=== PATIENT | male | born 2000 | race Caucasian/White ===

== ENCOUNTER 2024-05-10 11:25 | Emergency (ER) | payer OTHER ==
[~2024-05-10] VITALS: Ht 185.4 cm; Wt 68.2 kg
[~2024-05-10 11:25] MED LIST: NO HOME MEDS; ONDA-103 PO; PANT20TA18 PO
[2024-05-10] MEDS: insulin regular, human 10 units/0.1 ml syringe IV ONE (12:06)
[2024-05-10] MEDS: normal saline 1000ML IV soln IVB ONE (12:07)
[2024-05-10 12:22] LABS: BILIRUBIN,URINE NEGATIVE (Neg); CLARITY,URINE CLEAR (Clear); COLOR,URINE YELLOW (Yellow); GLUCOSE, URINE 500 mg/dl (Neg); KETONES,URINE >=80 mg/dl (Neg); LEUKOCYTE ESTERASE ,URINE NEGATIVE (Neg); NITRITES, URINE NEGATIVE (Neg); OCCULT BLOOD,URINE NEGATIVE (Neg); PROTEIN,URINE NEGATIVE (Neg); UROBILINOGEN,URINE 0.2 E.U/dL (0.2-1.0)
[2024-05-10 12:22] LABS: BASOPHILS # (AUTO) 0.1 X10'3 (0-0.2); BASOPHILS % (AUTO) 0.8 % (0-1); EOSINOPHILS % (AUTO) 0.5 % (0-6); HEMATOCRIT 38.2 % (42.0-52.0); HEMOGLOBIN 12.7 g/dl (14.0-17.9); LYMPHOCYTES % (AUTO) 14.4 % (21-51); MEAN CORPUSCULAR HGB CONC 33.3 g/dL (33.0-36.5); MEAN CORPUSCULAR VOLUME 87.1 FL (78-98); MONOCYTES # (AUTO) 0.3 X10'3 (0-0.9); MONOCYTES % (AUTO) 3.6 % (2-12); NEUTROPHILS # (AUTO) 5.6 X10'3 (1.8-7.7); NEUTROPHILS % (AUTO) 80.7 % (42-75); PLATELET COUNT 177 X10'3 (140-440); RED BLOOD COUNT 4.39 X10'6 (4.70-6.10); WHITE BLOOD COUNT 6.9 X10'3 (4.5-11.0)
[2024-05-10 12:23] LABS: UA COLLECTION TYPE VOIDED
[2024-05-10 12:35] LABS: ALANINE AMINOTRANSFERASE 11 U/L (12-78); ALBUMIN 3.9 G/DL (3.4-5.0); ALBUMIN/GLOBULIN RATIO 1.2 (1.1-1.5); ALKALINE PHOSPHATASE 68 IU/L (46-116); ANION GAP 20 (8-16); ASPARTATE AMINO TRANSFERASE 18 U/L (10-37); BILIRUBIN,TOTAL 1.4 MG/DL (0.1-1.0); BLOOD UREA NITROGEN 16 MG/DL (7-18); BUN/CREATININE RATIO 14.3 (10.0-20.0); CALCIUM 8.1 MG/DL (8.5-10.1); CHLORIDE 102 MMOL/L (99-107); CREATININE 1.12 MG/DL (0.60-1.10); GLUCOSE 373 MG/DL (70-104); MAGNESIUM 1.6 MG/DL (1.5-2.4); PHOSPHORUS 2.2 MG/DL (2.3-4.5); POTASSIUM 4.1 MMOL/L (3.5-5.1); SODIUM 137 MMOL/L (135-145); TOTAL CARBON DIOXIDE 15.3 MMOL/L (24-32); TOTAL PROTEIN 7.1 G/DL (6.4-8.2); eCRCL 98 ML/MIN; eGFR 81 ML/MIN
[2024-05-10] MEDS: ondansetron/PF 4mg/2ml inj IV ONE (12:46)
[2024-05-10] MEDS: ringers solution, lactated 1000ml IV soln IV ONE ×2 (12:47→13:55)
[2024-05-10] MEDS: acetaminophen 1,000mg/100ml IV 100 ML IV ONE (13:59)
[2024-05-10] MEDS: ketorolac trometh 15mg/ml vial 15 MG/ML ML IV ONE (13:59)
[2024-05-10] MEDS: potassium Cl 20 mEq SR tablet PO STA (14:11)
[2024-05-10 14:27] VITALS: BP 98/46; PULSE 110; O2SAT 100
[2024-05-10 14:28] VITALS: RESP 14
[2024-05-10] MEDS ORDERED: ONDA-243 PO (14:33)
[2024-05-10 14:44] VITALS: TEMP 97.1
[2024-05-11] MEDS ORDERED: INSU100V49 SQ (17:29)
[2024-05-11] MEDS ORDERED: ONDA-243 PO (17:29)
== END 2024-05-10 14:45 | disposition home or self-care (01) ==
LOC: ER 11:25
DX: R11.2 Nausea with vomiting, unspecified (principal); E11.9 Type 2 diabetes mellitus without complications; Z88.0 Allergy status to penicillin; Z88.1 Allergy status to other antibiotic agents; Z79.899 Other long term (current) drug therapy; Z79.4 Long term (current) use of insulin
CPT/HCPCS: 36415; 80053; 81003; 82948; 83735; 84100; 84145; 85025; 96361; 96365; 96375; 99285; J0131; J1815; J1885; J2405; J7030; J7120

== ENCOUNTER 2024-05-10 16:32 | Inpatient (IN) | payer OTHER ==
[~2024-05-10] VITALS: Ht 182.9 cm; Wt 65.9 kg
[~2024-05-10 16:32] MED LIST changes: +ONDA-243 PO
[2024-05-10] MEDS: normal saline 1000ML IV soln IVB ONE (16:55)
[2024-05-10] MEDS: LORazepam 2 mg/ml vial IV ONE (16:56)
[2024-05-10] MEDS: metoclopramide 5 mg/ml inj IV ONE (16:57)
[2024-05-10] MEDS: diphenhydrAMINE 50 mg/ml inj IV ONE (16:58)
[2024-05-10 17:11] LABS: ALBUMIN 4.1 G/DL (3.4-5.0); ANION GAP 21 (8-16); BLOOD UREA NITROGEN 16 MG/DL (7-18); BUN/CREATININE RATIO 12.1 (10.0-20.0); CALCIUM 8.6 MG/DL (8.5-10.1); CHLORIDE 99 MMOL/L (99-107); CREATININE 1.32 MG/DL (0.60-1.10); GLUCOSE 320 MG/DL (70-104); POTASSIUM 4.8 MMOL/L (3.5-5.1); SODIUM 134 MMOL/L (135-145); eCRCL 80 ML/MIN; eGFR 67 ML/MIN
[2024-05-10 17:13] LABS: TOTAL CARBON DIOXIDE 14.2 MMOL/L (24-32)
[2024-05-10] MEDS ORDERED: potassium Cl 40MEQ/1/2NS 520ml 520 ML IV PRN ×2 (17:15→18:30)
[2024-05-10] MEDS ORDERED: Neutra Phos packet PO PRN (17:15)
[2024-05-10] MEDS ORDERED: dextrose 50%-water 50ml dispensing syringe IV PRN (17:15)
[2024-05-10] MEDS ORDERED: potassium Cl 20 mEq SR tablet PO PRN ×4 (17:15→18:30)
[2024-05-10] MEDS ORDERED: sodium phosphate inj. 15 MMOL in dextrose 5%-water 250 ML IV PRN (17:15)
[2024-05-10] MEDS ORDERED: sodium phosphate inj. 30 MMOL in dextrose 5%-water 250 ML IV PRN (17:15)
[2024-05-10] MEDS: insulin regular, human 10 units/0.1 ml syringe IV ONE (17:18)
[2024-05-10] MEDS: Insulin Reg/NS 100units/100mL 100 ML IV SCH (17:29)
[2024-05-10] MEDS: normal saline 1000ml 1,000 ML IV SCH (17:43)
[2024-05-10 17:55] LABS: ABG BASE EXCESS -13.6 mmol/L (-2.0-3.0); ABG HCO3 11.4 mmol/L (21.0-28.0); ABG OXYGEN SATURATION 96.7 % (94.0-98.0); ABG PCO2 (T) 24.9 mmHg (35.0-48.0); ABG PH (T) 7.279 (7.350-7.450); ABG PO2 (T) 98.3 mmHg (83.0-108.0); ALLEN'S TEST POSITIVE; FCOHb 0.3 % (0.5-1.5); FHHb 3.3 % (0.0-5.0); FLOW 0 L/min; FMetHb 0.3 % (0.0-1.5); FO2Hb 96.1 % (94.0-98.0); MODE RA; PATIENT TEMPERATURE 36.9; TOTAL HEMOGLOBIN 12.7 G/dl (13.5-17.5)
[2024-05-10] MEDS: ringers solution, lactated 1000ml IV soln IV ONE (18:11)
[2024-05-10] MEDS ORDERED: magnesium sulf-water 4G/100mL 100 ML IV PRN (18:30)
[2024-05-10] MEDS ORDERED: acetaminophen 325mg tablet PO PRN (18:30)
[2024-05-10] MEDS ORDERED: mag hydrox/Alum hydrox/simeth 30ml oral suspension PO PRN (18:30)
[2024-05-10] MEDS ORDERED: magnesium sulf-water 2g/50mL 50 ML IV PRN (18:30)
[2024-05-10] MEDS ORDERED: glucagon, human recombinant 1mg kit SUBCUT PRN (18:30)
[2024-05-10] MEDS: potassium CL 20mEq in D5-1/2NS 1,000 ML IV PRN (18:31)
[2024-05-10 19:20] LABS: ALANINE AMINOTRANSFERASE 10 U/L (12-78); ALBUMIN 2.6 G/DL (3.4-5.0); ALBUMIN/GLOBULIN RATIO 1.2 (1.1-1.5); ALKALINE PHOSPHATASE 41 IU/L (46-116); ANION GAP 12 (8-16); ASPARTATE AMINO TRANSFERASE 18 U/L (10-37); BILIRUBIN,TOTAL 0.8 MG/DL (0.1-1.0); BLOOD UREA NITROGEN 14 MG/DL (7-18); BUN/CREATININE RATIO 15.6 (10.0-20.0); CHLORIDE 105 MMOL/L (99-107); GLUCOSE 209 MG/DL (70-104); POTASSIUM 4.1 MMOL/L (3.5-5.1); SODIUM 133 MMOL/L (135-145); TOTAL CARBON DIOXIDE 15.9 MMOL/L (24-32); TOTAL PROTEIN 4.8 G/DL (6.4-8.2); eCRCL 118 ML/MIN; eGFR > 90 ML/MIN
[2024-05-10 19:27] LABS: HEMOGLOBIN A1C 9.6 % (4.5-6.2)
[2024-05-10] MEDS: normal saline 1000ml 1,000 ML IV STA (19:46)
[2024-05-10] MEDS: K and/or MAG REPLACEMENT MC SCH ×2 (20:00)
[2024-05-10] MEDS: docusate sod 100mg capsule PO SCH (20:00)
[2024-05-10] MEDS: INSULIN LISPRO 100 UNIT/ML INSULN.PEN MULTI-DOSE SQ SCH (20:43)
[2024-05-10 22:18] LABS: ALBUMIN 2.8 G/DL (3.4-5.0); ANION GAP 6 (8-16); BLOOD UREA NITROGEN 12 MG/DL (7-18); CALCIUM 7.4 MG/DL (8.5-10.1); CHLORIDE 110 MMOL/L (99-107); CREATININE 0.92 MG/DL (0.60-1.10); GLUCOSE 126 MG/DL (70-104); PHOSPHORUS 1.8 MG/DL (2.3-4.5); POTASSIUM 4.2 MMOL/L (3.5-5.1); SODIUM 137 MMOL/L (135-145); TOTAL CARBON DIOXIDE 21.4 MMOL/L (24-32); eCRCL 115 ML/MIN; eGFR > 90 ML/MIN
[2024-05-10 23:35] LABS: ANION GAP 5 (8-16); BLOOD UREA NITROGEN 13 MG/DL (7-18); BUN/CREATININE RATIO 14.9 (10.0-20.0); CALCIUM 7.8 MG/DL (8.5-10.1); CHLORIDE 110 MMOL/L (99-107); CREATININE 0.87 MG/DL (0.60-1.10); GLUCOSE 88 MG/DL (70-104); SODIUM 138 MMOL/L (135-145); TOTAL CARBON DIOXIDE 22.7 MMOL/L (24-32); eCRCL 122 ML/MIN; eGFR > 90 ML/MIN
[2024-05-11] MEDS: insulin glargine (Lantus) pen - multi-dose SQ SCH (00:19)
[2024-05-11] MEDS: ondansetron/PF 4mg/2ml inj IV PRN (00:21)
[2024-05-11 03:58] LABS: BASOPHILS % (AUTO) 0.4 % (0-1); EOSINOPHILS # (AUTO) 0.1 X10'3 (0-0.9); EOSINOPHILS % (AUTO) 0.8 % (0-6); HEMATOCRIT 36.5 % (42.0-52.0); HEMOGLOBIN 12.4 g/dl (14.0-17.9); LYMPHOCYTES # (AUTO) 2.2 X10'3 (1.1-4.8); MEAN CORPUSCULAR HEMOGLOBIN 29.5 PG (27.0-31.0); MEAN CORPUSCULAR HGB CONC 33.9 g/dL (33.0-36.5); MEAN CORPUSCULAR VOLUME 87.1 FL (78-98); MEAN PLATELET VOLUME 10.4 FL (7.4-10.4); MONOCYTES # (AUTO) 0.9 X10'3 (0-0.9); NEUTROPHILS # (AUTO) 8.4 X10'3 (1.8-7.7); NEUTROPHILS % (AUTO) 71.8 % (42-75); PLATELET COUNT 151 X10'3 (140-440); RED BLOOD COUNT 4.19 X10'6 (4.70-6.10); RED CELL DISTRIBUTION WIDTH 12.1 % (11.5-14.5); WHITE BLOOD COUNT 11.6 X10'3 (4.5-11.0)
[2024-05-11 04:15] LABS: ALANINE AMINOTRANSFERASE 10 U/L (12-78); ALBUMIN 2.9 G/DL (3.4-5.0); ALBUMIN/GLOBULIN RATIO 1.1 (1.1-1.5); ALKALINE PHOSPHATASE 48 IU/L (46-116); ANION GAP 10 (8-16); ASPARTATE AMINO TRANSFERASE 19 U/L (10-37); BILIRUBIN,TOTAL 1.1 MG/DL (0.1-1.0); BLOOD UREA NITROGEN 12 MG/DL (7-18); BUN/CREATININE RATIO 12.6 (10.0-20.0); CALCIUM 7.8 MG/DL (8.5-10.1); CHLORIDE 104 MMOL/L (99-107); CREATININE 0.95 MG/DL (0.60-1.10); GLUCOSE 198 MG/DL (70-104); MAGNESIUM 1.7 MG/DL (1.5-2.4); PHOSPHORUS 3.5 MG/DL (2.3-4.5); POTASSIUM 4.9 MMOL/L (3.5-5.1); SODIUM 133 MMOL/L (135-145); TOTAL CARBON DIOXIDE 19.5 MMOL/L (24-32); TOTAL PROTEIN 5.5 G/DL (6.4-8.2); eCRCL 112 ML/MIN; eGFR > 90 ML/MIN
[2024-05-11] MEDS: INSULIN LISPRO 100 UNIT/ML INSULN.PEN MULTI-DOSE SQ SCH (10:05)
[2024-05-11 11:00] VITALS: RESP 16; O2SAT 97
[2024-05-11 11:10] VITALS: BP 124/62; PULSE 97; TEMP 97.9; O2SAT 97
[2024-05-11] MEDS: insulin Lispro (HumaLOG) vial - multi-dose SQ ONE (11:39)
[2024-05-11] MEDS: INSULIN LISPRO 100 UNIT/ML INSULN.PEN MULTI-DOSE SQ ONE ×2 (11:59→13:15)
[2024-05-11 15:00] VITALS: BP 114/77; PULSE 98; TEMP 99; O2SAT 98
[2024-05-11] MEDS ORDERED: INSU100V49 SQ (17:29)
[2024-05-11] MEDS ORDERED: ONDA-243 PO (17:29)
[2024-05-11] MEDS ORDERED: insulin glargine (Lantus) pen - multi-dose SQ SCH (21:00)
== END 2024-05-11 19:23 | disposition home or self-care (01) | DRG 637 ==
LOC: ER 16:32 → ED HOLD 18:37 → PCU 3S 05-11 10:55
PROVIDERS: ADMIT Family Medicine; ATTEND Family Medicine
DX: E10.10 Type 1 diabetes mellitus with ketoacidosis without coma (principal); N17.0 Acute kidney failure with tubular necrosis; R11.15 Cyclical vomiting syndrome unrelated to migraine; Z88.0 Allergy status to penicillin; Z88.1 Allergy status to other antibiotic agents; Z83.3 Family history of diabetes mellitus
CPT/HCPCS: 36415; 36600; 71045; 80048; 80053; 82803; 82948; 83036; 83605; 83735; 84100; 85018; 85025; 96365; 96367; 96375; 99285; G0378; J1200; J1815; J2060; J2405; J2765; J3480; J7030; J7120

== ENCOUNTER 2025-06-29 12:41 | Inpatient (IN) | payer OTHER ==
[~2025-06-29] VITALS: Ht 182.9 cm; Wt 72.3 kg
[~2025-06-29 12:41] MED LIST changes: +INSU100V49 SQ; -NO HOME MEDS; -ONDA-103 PO; -PANT20TA18 PO
--- NOTE | 2025-06-29 13:26 | Physician Documentation ---
History of Present Illness General Chief Complaint: Vomiting Stated Complaint: DKA Time Seen by MD: 13:26 Primary Medical Doctor: BRITTNEY Grijalva History of Present Illness Initial Comments 25 year old male with history of diabetes presents to the emergency department for complaints of vomiting that began last night. He states that he had been vomiting beginning at midnight and vomited a total of four times. He states that he urinated and tried to replenish his fluids himself to no avail. Medication Reconciliation Allergies: Coded Allergies: Penicillins (Verified Allergy, Unknown, 05/10/24) amoxicillin (Verified Allergy, Unknown, 05/10/24) Scheduled Insulin Lispro (Insulin Lispro), 1 UNIT SQ 5X/DAY Discontinued Medications ONDANSETRON ODT 4mg tablet (Ondansetron Odt), 1 TAB PO Q6H PRN for nausea/vomiting Discontinued Reason: ADR (Adverse Drug Rxn) Past Medical History Past Medical History: Diabetes Past Surgical History: no surgical history Smoking: Non-Smoker Alcohol Use: None Drug Use: none Lives In: Home Review of Systems All Other Systems at this time: Reviewed and Negative ROS Patient was asked, but denied any other symptoms. All other systems are negative other than those mentioned above. Physical Exam Physical Exam Vital Signs: RN Vital Signs have been reviewed: Yes, Temperature: 98.5, Source: Temporal, Heart Rate: 77, Respiratory Rate: 18, BP: 147/73, Pulse Oximetry: 99, Weight: 72.300 Oxygen Flow Rate: 0 Pulse Oximetry Reflects: adequate oxygenation Physical Exam VITALS: Reviewed and as above. GENERAL: Pale. Ill appearing. Alert, no apparent distress. HEENT: Normocephalic, atraumatic. PERRL, EOMI. Dry mucosa, no erythema. RESPIRATORY: Lungs clear, normal breath sounds, no respiratory distress. CHEST: No accessory muscle use, no retractions. CV: Tachycardic. No edema, no murmur, No: JVD GI: Abdominal tenderness., bowel sounds present. No rebound, guarding, or rigidity. BACK: No CVA tenderness, no swelling. MUSCULOSKELETAL: No deformities, no edema SKIN: Warm and dry, no rash. NEURO: Oriented x4. No motor or sensory deficit. PSYCH: Normal mood and affect, no agitation. Progress Results/Orders Results/Orders Orders - OHLFSАНДРЕЙ MD Chest,Single View (06/29/25 13:53) Page Hospitalist (06/29/25 14:38) Completed Orders - OHLFS,АНДРЕЙ Trejo MD Urinalysis, Cult If Indicated (06/29/25 12:59) Cbc/Diff (06/29/25 12:59) BMP (06/29/25 12:59) Lipase (06/29/25 12:59) CMP (06/29/25 12:59) K (06/29/25 17:30) Ringers Solution, Lacted (Lactated Ringe (06/29/25 13:30) Ringers Solution, Lacted (Lactated Ringe (06/29/25 13:30) Dextrose 5%-1/2 Normal Saline (Dextrose (06/29/25 13:30) Insulin Reg/Ns 100units/100ml (Myxredlin (06/29/25 13:30) Dextrose 50%-Water (Dextrose 50%-Water S (06/29/25 13:30) Potassium Cl 40meq/1/2ns 520ml ([place] (06/29/25 13:30) Potassium Cl 40meq/270ml Bag (Potassium (06/29/25 13:30) Magnesium Sulf-Water 2g/50ml (Magnesium (06/29/25 13:30) Sodium Phos 15mmol/D5 255ml (Sodium Phos (06/29/25 13:30) Procalcitonin (06/29/25 13:29) Chest,Single View (06/29/25 13:53) MG (06/29/25 13:06) PHOS (06/29/25 13:06) Electrocardiogram (06/29/25 ) Lacticsepsis (06/29/25 13:49) Normal Saline 1000ml (0.9% Sodium Chlori (06/29/25 13:55) Normal Saline 1000ml (0.9% Sodium Chlori (06/29/25 13:55) Metoclopramide Inj (Reglan Inj) (06/29/25 14:15) Diphenhydramine Inj (Benadryl Inj.) (06/29/25 14:15) Lactic,2hr (06/29/25 15:25) Hgb A1c (06/29/25 13:06) Vital Signs 06/29/25 06/29/25 06/29/25 12:53 15:13 15:14 Temp 98.5 Pulse 77 10 Resp 18 21 20 B/P (MAP) 147/73 118/60 (79) Pulse Ox 99 100 O2 Flow Rate 0 Laboratory Tests Test 06/29/25 12:57 06/29/25 13:06 06/29/25 13:24 06/29/25 13:39 Glucometer 510 *H > 600 *H White Blood Count 11.1 H Red Blood Count 5.58 Hemoglobin 15.9 Hematocrit 47.0 Mean Corpuscular Volume 84.2 Mean Corpuscular Hemoglobin 28.4 Mean Corpuscular Hemoglobin Concent 33.8 Red Cell Distribution Width 12.0 Platelet Count 289 Mean Platelet Volume 10.0 Neutrophils (%) (Auto) 88.0 H Lymphocytes (%) (Auto) 8.8 L Monocytes (%) (Auto) 2.8 Eosinophils (%) (Auto) 0.1 Basophils (%) (Auto) 0.3 Neutrophils # (Auto) 9.8 H Lymphocytes # (Auto) 1.0 L Monocytes # (Auto) 0.3 Eosinophils # (Auto) 0.0 Basophils # (Auto) 0.0 CBC Comment Sodium Level 136 Potassium Level 5.4 H 5.3 H Chloride Level 96 L Carbon Dioxide Level 10.8 *L Anion Gap 29 H Blood Urea Nitrogen 20 H Creatinine 1.30 H Estimated GFR/1.73 m2 67 BUN/Creatinine Ratio 15.4 Glucose Level 584 *H Hemoglobin A1c > 12.0 H Lactic Acid Level 4.2 *H Calcium Level 9.6 Phosphorus Level 5.4 H Magnesium Level 2.3 Total Bilirubin 1.7 H Aspartate Amino Transf (AST/SGOT) 21 Alanine Aminotransferase (ALT/SGPT) 12 Alkaline Phosphatase 91 Total Protein 8.6 H Albumin 4.6 Globulin 4.0 Albumin/Globulin Ratio 1.2 Lipase 15 L Chemistry Comments Procalcitonin 0.07 Test 06/29/25 14:23 06/29/25 15:10 Urine Specimen Description Cln catch midstream Urine Color Yellow Urine Clarity Clear Urine pH 5.5 Urine Specific [place] 1.025 Urine Protein Negative Urine Glucose (UA) 500 H Urine Ketones >=80 Urine Occult Blood Negative Urine Nitrite Negative Urine Bilirubin Negative Urine Urobilinogen 0.2 Urine Leukocyte Esterase Negative Urine Culture Indicated Not ind Volume Urine Centrifuged 10 ml Urine Comment Urine Opiates Screen Negative Urine Methadone Screen Negative Urine Fentanyl Screen Negative Urine Barbiturates Screen Negative Urine Phencyclidine Screen Negative Urine Amphetamines Screen Negative Urine Benzodiazepines Screen Negative Urine Cocaine Screen Negative Urine Cannabinoids Screen Positive Drug Screen Comment Glucometer 489 *H EKG/XRAY/CT/US/VASC/MRI EKG : Additional Comment 1344: [facility] interpreted EKG to show sinus rhythm at a rate of 98 with normal axis, nonspecific ST changes. Borderline EKG. Chest X-Ray : Additional Comments CHEST RADIOGRAPH INDICATION: dka TECHNIQUE: Single frontal view of the chest was obtained COMPARISON: DI CHEST,SINGLE VIEW on DOS: 05/10/24 FINDINGS: Lines and Tubes: None Lungs: Clear Pleura: No effusion. No pneumothorax. Cardiomediastinal contours: Unremarkable Bones: Unremarkable IMPRESSION: No acute disease. Electronically Signed by:JONAS ARDON MD Date & Time: 06/29/25 1409 Reviewed by [facility] Departure Referrals: NO PRIMARY CARE PROVIDER (PCP) Signature Scribe Signature: Scribed by Fabian Morrison KYIvyАНДРЕЙ MD Jun 29, 2025 13:26
[2025-06-29] MEDS ORDERED: potassium Cl 40MEQ/270ML bag 270 ML IV PRN (13:30)
[2025-06-29] MEDS ORDERED: dextrose 50%-water 50ml dispensing syringe IV PRN (13:30)
[2025-06-29] MEDS ORDERED: magnesium sulf-water 2g/50mL 50 ML IV PRN ×2 (13:30→16:15)
[2025-06-29] MEDS: ringers solution, lacted 1,000 ML IV SCH ×2 (13:30)
[2025-06-29] MEDS ORDERED: sodium phos 15mmol/D5 255mL 255 ML IV PRN (13:30)
[2025-06-29 13:37] LABS: MEAN PLATELET VOLUME 10.0 FL (7.4-10.4); RED CELL DISTRIBUTION WIDTH 12.0 % (11.5-14.5)
[2025-06-29 13:43] LABS: CREATININE 1.30 MG/DL (0.60-1.10); eCRCL 88 ML/MIN; eGFR 67 ML/MIN
--- NOTE | 2025-06-29 13:45 | ELECTROCARDIOGRAPH REPORT ---
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 Eric Lee Measurements Intervals [place] Rate: 98 P: 80 MA: 111 QRS: 64 QRSD: 92 T: 73 QT: 369 QTc: 472 Interpretive Statements Sinus rhythm Borderline short MA interval RSR' in V1 or V2, probably normal variant Borderline prolonged QT interval Electronically Signed On 07-01-2025 21:14:[address] Eric Lee Please click the below link to view image of tracing.
[2025-06-29 13:49] LABS: TOTAL CARBON DIOXIDE 10.8 MMOL/L (24-32)
[2025-06-29] MEDS: normal saline 1000ml 1,000 ML IV ONE ×2 (14:01→14:17)
--- NOTE | 2025-06-29 14:11 | RADIOLOGY REPORT ---
CHEST RADIOGRAPH INDICATION: dka TECHNIQUE: Single frontal view of the chest was obtained COMPARISON: DI CHEST,SINGLE VIEW on DOS: 05/10/24 FINDINGS: Lines and Tubes: None Lungs: Clear Pleura: No effusion. No pneumothorax. Cardiomediastinal contours: Unremarkable Bones: Unremarkable IMPRESSION: No acute disease.
[2025-06-29 14:12] LABS: PHOSPHORUS 5.4 MG/DL (2.3-4.5)
[2025-06-29] MEDS: Insulin Reg/NS 100units/100mL 100 ML IV SCH (14:27)
[2025-06-29] MEDS: metoclopramide 5 mg/ml inj IV ONE (14:27)
[2025-06-29 14:34] LABS: LEUKOCYTE ESTERASE ,URINE NEGATIVE (Neg); NITRITES, URINE NEGATIVE (Neg); OCCULT BLOOD,URINE NEGATIVE (Neg)
[2025-06-29 14:35] LABS: UA COLLECTION TYPE CLN CATCH MIDSTREAM
[2025-06-29] MEDS ORDERED: magnesium hydroxide 30ml (MOM) UD suspension PO PRN (16:15)
[2025-06-29] MEDS ORDERED: magnesium sulf-water 4G/100mL 100 ML IV PRN (16:15)
[2025-06-29] MEDS ORDERED: mag hydrox/Alum hydrox/simeth 30ml oral suspension PO PRN (16:15)
[2025-06-29] MEDS ORDERED: potassium Cl 20 mEq SR tablet PO PRN ×2 (16:15)
[2025-06-29] MEDS ORDERED: magnesium Cl slow-release 64mg tablet PO PRN (16:15)
[2025-06-29] MEDS ORDERED: potassium Cl 40MEQ/1/2NS 520ml 520 ML IV PRN (16:15)
[2025-06-29 17:00] VITALS: BP 107/51; PULSE 14; RESP 14; TEMP 98.3; O2SAT 99
--- NOTE | 2025-06-29 17:24 | HISTORY AND PHYSICAL-Residence ---
History & Physical Providers to CC Resident Creating Document: SUNITA FLOWERS RES ~ History of Present Illness Primary Medical Doctor: BRITTNEY Tsang Reason for Admit\Complaint: high blood glucose History of Present Illness This is a 25-year-old male past medical history of type 1 diabetes mellitus presented in ER chief complaint of vomiting and abdominal pain. Patient reports since last night he experienced excessive urination stating was urinating wholenight and was drinking excess amounts of water due to feeling of de- hydration. He took 12 units of insulin however he was unable to check his glucose because he could not find his glucometer. In the morning he went to work he was feeling lethargic, abdominal pain.Then at home abdominal pain worseneded,was 8-10/ in intensity, radiating to left side of chest, shoulders and back. Associated with vomiting, he had four episodes of vomiting which did not contain any blood. Patient reports he taking insulin fast acting with insulin pump 30 units in 24 hours and supplementental 10-20 units . Allergies: Coded Allergies: Penicillins (Verified Allergy, Unknown, 05/10/24) amoxicillin (Verified Allergy, Unknown, 05/10/24) Home Medications Home Medications Active Insulin Lispro 100 Unit/Ml Vial 1 Unit SQ 5X/DAY 1 Days Insulin pump Past Medical History Past Medical History Type 1 diabetes mellitus Past Surgical History Surgical History Comment Denies any past surgical history. Family History Family History: (DM Type 2) Diabetes mellitus type 2 Paternal grandfather FH: heart disease Paternal grandmother Paternal grandfather Past Social History Social History Comment Denies smoking Drinks alcohol occasionally Smokes weed few times in a month Denies other illicit drug use history Lives in home with his family PCP is Brittney Tsang ROS ROS All reviewed and negative except for pertinent positive findings mentioned in HPI. Exam Vitals: Vital Signs Date Time Temp Pulse Resp B/P (MAP) Pulse Ox O2 Delivery O2 Flow Rate FiO2 06/29/25 15:14 20 06/29/25 15:13 10 100 06/29/25 12:53 98.5 0 General: General: awake, alert oriented to place, time, and person HEENT: No pallor present, no icterus, dry mucous membrane. Neck: No masses and tenderness Resp: Unlabored. Lungs clear to auscultation bilaterally. Chest: Normal expansion. Cardiovascular: Regular Rate and rhythm, normal S1 and S2 without murmur, rub or gallop Abdomen: Soft and mildly tender in epigastrium, no organomegaly, no guarding and rigidity, bowel sounds present Neuro: No focal weakness in the upper and lower limb muscles, power of the muscles 5/5 bilateral upper and lower extremities, normal reflexes bilaterally. Cranial nerves intact Extremities: No cyanosis,clubbing or edema Skin: Warm and Dry. Psych: Normal affect Diagnostic Data Last Recorded Lab Results: 06/29/25 1306 06/29/25 1339 Advance Care Planning Advanced Care plannin - 30 Minutes (I spent 17 minutes in discussing various resustitative measures with patient and choose to be full code.) Additional Plan This is a 25-year-old male with past medical history of type 1 diabetes mellitus admitted for DKA. Type 1 Diabetes Mellitus complicated by Diabetic Ketoacidosis Anion Gap metabolic Acidosis Blood glucose was greater than > 600, currently 371 Lactic acid 4.2 trended down to 2.7 Anion gap 29 On DKA protocol LR IV 1000/hr 2 bags given. Received 2 L of NS in ER on IV insulin drip. Received reglan 10 mg IV in ER. Ondasetron prn Follow up with A1c Terminate DKA protocol if anion gap is close <12, patient able to eat, < 200 and Bicarb >15-18 or ph > 7.30 Overlap IV insulin for 1-2 hours after SQ insulin to prevent rebound DKA Hyperkalemia K 5.3 on insulin drip which will lower down K Acute Kidney Injury likely secondary to dehydration Creatinine 1.30 Follow up CMP Received 2 L NS Code Status: Full Code Dvt prophylaxis: Lovenox Case has been discussed and reviewed by PGY2/PGY [address] Cele Flowers PGY 1 IM Date of Service: Jun 29, 2025 Billing Provider: DAVID MAK MD, SANJAY, RES Jun 29, 2025 17:23
[2025-06-29 17:30] VITALS: RESP 18; O2SAT 99
[2025-06-29 17:44] LABS: URINE AMPHETAMINE SCREEN NEGATIVE (Neg); URINE BARBITUATE SCREEN NEGATIVE (Neg); URINE BENZODIAZEPINES SCREEN NEGATIVE (Neg); URINE CANNABINOID SCREEN POSITIVE (Neg); URINE COCAINE SCREEN NEGATIVE (Neg); URINE METHADONE SCREEN NEGATIVE (Neg); URINE OPIATE SCREEN NEGATIVE (Neg); URINE PHENCYCLIDINE SCREEN NEGATIVE (Neg)
[2025-06-29 18:00] VITALS: BP 98/50; PULSE 106; RESP 16; TEMP 96.7; O2SAT 100
[2025-06-29 20:00] VITALS: RESP 18; O2SAT 96
[2025-06-29] MEDS: docusate sod 100mg capsule PO SCH (20:00)
[2025-06-29] MEDS: K and/or MAG REPLACEMENT MC SCH (20:00)
[2025-06-29 20:35] LABS: CREATININE 1.11 MG/DL (0.60-1.10); eCRCL 103 ML/MIN; eGFR 80 ML/MIN
[2025-06-29 20:50] LABS: TOTAL CARBON DIOXIDE 14.5 MMOL/L (24-32)
[2025-06-29 21:07] LABS: PHOSPHORUS 3.0 MG/DL (2.3-4.5)
[2025-06-29] MEDS: ondansetron/PF 4mg/2ml inj IV PRN (21:17)
[2025-06-29 22:00] VITALS: BP 100/58; PULSE 103; RESP 20; TEMP 98.4; O2SAT 96
[2025-06-29] MEDS: potassium Cl 40MEQ/1/2NS 520ml 520 ML IV PRN (22:01)
[2025-06-30 00:16] LABS: CREATININE 0.97 MG/DL (0.60-1.10); TOTAL CARBON DIOXIDE 21.2 MMOL/L (24-32); eCRCL 118 ML/MIN; eGFR > 90 ML/MIN
[2025-06-30 00:38] LABS: PHOSPHORUS 1.6 MG/DL (2.3-4.5)
[2025-06-30] MEDS: sodium phos 15mmol/D5 255mL 255 ML IV PRN (01:45)
[2025-06-30 02:00] VITALS: BP 99/56; PULSE 86; RESP 18; TEMP 98.3; O2SAT 96
[2025-06-30 03:02] LABS: CREATININE 1.00 MG/DL (0.60-1.10); TOTAL CARBON DIOXIDE 21.9 MMOL/L (24-32); eCRCL 114 ML/MIN; eGFR 90 ML/MIN
[2025-06-30] MEDS: dextrose 50%-water 50ml dispensing syringe IV ONE (03:26)
[2025-06-30] MEDS ORDERED: dextrose 50%-water 50ml dispensing syringe IV PRN ×3 (03:30→05:25)
[2025-06-30] MEDS: potassium Cl 40MEQ/1/2NS 520ml 520 ML IV PRN (03:46)
[2025-06-30] MEDS: Insulin Reg/NS 100units/100mL 100 ML IV SCH ×2 (04:07→06:00)
[2025-06-30] MEDS ORDERED: DEXTROSE 15 GM of carb/4 tabs (each vial/BOTTLE has 4 tablets) PO PRN ×2 (05:25)
[2025-06-30] MEDS ORDERED: glucagon, human recombinant 1mg kit SUBCUT PRN (05:25)
[2025-06-30 06:00] VITALS: BP 89/50; PULSE 92; RESP 14; TEMP 97.5; O2SAT 98
[2025-06-30] MEDS: enoxaparin 40mg/0.4ml syringe SUBCUT SCH (07:54)
[2025-06-30 07:58] LABS: CREATININE 0.93 MG/DL (0.60-1.10); TOTAL CARBON DIOXIDE 21.9 MMOL/L (24-32); eCRCL 123 ML/MIN; eGFR > 90 ML/MIN
[2025-06-30 08:00] VITALS: RESP 14; O2SAT 98
[2025-06-30 08:01] LABS: PHOSPHORUS 3.4 MG/DL (2.3-4.5)
[2025-06-30] MEDS: INSULIN LISPRO 100 UNIT/ML INSULN.PEN MULTI-DOSE SQ SCH ×2 (08:39)
[2025-06-30 08:46] LABS: MEAN PLATELET VOLUME 9.4 FL (7.4-10.4); RED CELL DISTRIBUTION WIDTH 12.3 % (11.5-14.5)
[2025-06-30] MEDS ORDERED: INSULIN LISPRO 100 UNIT/ML INSULN.PEN MULTI-DOSE SQ SCH (09:00)
[2025-06-30 11:00] VITALS: BP 95/58; PULSE 104; RESP 18; TEMP 97.7; O2SAT 98
[2025-06-30 12:18] LABS: CREATININE 0.88 MG/DL (0.60-1.10); TOTAL CARBON DIOXIDE 21.6 MMOL/L (24-32); eCRCL 130 ML/MIN; eGFR > 90 ML/MIN
--- NOTE | 2025-06-30 14:55 | DISCHARGE SUMMARY-Residence ---
Discharge Summary Providers to CC Resident Creating Document: SUNITA CHAMBERS RES ~ Discharge Summary Admission Diagnosis: DKA Hospital Course DATE OF ADMISSION: 06/29/25 DATE OF DISCHARGE: 06/30/25 Discharge Diagnosis\Comment: Type 1 Diabetes Mellitus complicated by DKA Hyperkalemia Resolved VIDYA Secondary to Dehydration Operations\Procedures: None Consultants: None Complications: None Condition on DC: Stable Continued Medications: Insulin Lispro (Insulin Lispro) 100 Unit/Ml Vial 1 UNIT SQ 5X/DAY for 1 Day, #1 ML Insulin pump Discharge Summary: Hospital Course This is a 25-year-old male past medical history of type 1 diabetes mellitus pre sented in ER with chief complaint of vomiting, abdominal pain and vomitting. Blood glucose was 584, elevated anion gap lactic acidosis, anion gap was 4.2 and lactic acid 4.2, in view of this patient was started on DKA protocol including insulin drip and LR,anion gap was eventually closed , lactic acid came back to normal after treament, DKA protocol was eventually discontinued, Overlap of IV insulin for 1-2 hours with SQ insulin lispro was in place.Hba1c was > 12,Patient elevated Hba1c and blood glucose was likely due to non adherence on insulin, In addition to that patient also had hyperkalemia 5.4 which was eventually resolved as he was receving insulin.Blood glucose on discharge was 115. Patient was stable and ready for discharge. On discharge patient was counselled in detail regarding diabetes mellitus type 1, disease process and strict glycemic control was emphasized.Patient was educated about maintaing blood sugar within target range to prevent short term and terminal operations supervisor complications.Patient was also advised on regular blood glucose monitoring, insulin adherence , healthy diet and regular exercise and patient was also also advised to hold insulin dose if your blood is very low or if you feel symptoms of hypoglycemia and to immediately take glucose tablets(which he already had) or anything candy or juice.Counselling regarding hypoglycemic symptoms was also given. Patient also had dexacom device , Patient also reports he uses 30 units of insulin with insulin pump in 24 hours and 5-10 units lispro on sliding scale with meals he was advised to continue this same regimen and follow up with telecommunications officer. Discharge Instructions Follow up with PCP and Endrinologist within 1 week. Your diabetes is poorly controlled you need to follow up with Warehouse Man. Check your blood glucose regularly. Continue your insulin pump and continue your sliding scale insulin. Call 911 or go to [facility] if you experience chest pain, shortness of breath or high blood sugar Physical Examination General: awake, alert oriented to place, time, and person HEENT: No pallor present, no icterus, moist mucous membranes Neck: No masses and tenderness Resp: Unlabored. Lungs clear to auscultation bilaterally. Chest: Normal expansion. Cardiovascular: Regular Rate and rhythm, normal S1 and S2 without murmur, rub or gallop Abdomen: Soft and non tender in epigastrium, no organomegaly, no guarding and rigidity, bowel sounds present Neuro: No focal weakness in the upper and lower limb muscles, power of the muscles 5/5 bilateral upper and lower extremities, normal reflexes bilaterally. Cranial nerves intact Extremities: No cyanosis,clubbing or edema Skin: Warm and Dry. Psych: Normal affect Labs Laboratory Tests Test 06/29/25 12:57 06/29/25 13:06 06/29/25 13:24 06/29/25 13:39 Glucometer 510 mg/dl > 600 mg/dl White Blood Count 11.1 X10'3 Red Blood Count 5.58 X10'6 Hemoglobin 15.9 g/dl Hematocrit 47.0 % Mean Corpuscular Volume 84.2 FL Mean Corpuscular Hemoglobin 28.4 PG Mean Corpuscular Hemoglobin Concent 33.8 g/dL Red Cell Distribution Width 12.0 % Platelet Count 289 X10'3 Mean Platelet Volume 10.0 FL Neutrophils (%) (Auto) 88.0 % Lymphocytes (%) (Auto) 8.8 % Monocytes (%) (Auto) 2.8 % Eosinophils (%) (Auto) 0.1 % Basophils (%) (Auto) 0.3 % Neutrophils # (Auto) 9.8 X10'3 Lymphocytes # (Auto) 1.0 X10'3 Monocytes # (Auto) 0.3 X10'3 Eosinophils # (Auto) 0.0 X10'3 Basophils # (Auto) 0.0 X10'3 CBC Comment Sodium Level 136 MMOL/L Potassium Level 5.4 MMOL/L 5.3 MMOL/L Chloride Level 96 MMOL/L Carbon Dioxide Level 10.8 MMOL/L Anion Gap 29 Blood Urea Nitrogen 20 MG/DL Creatinine 1.30 MG/DL Estimated GFR/1.73 m2 67 ML/MIN BUN/Creatinine Ratio 15.4 Glucose Level 584 MG/DL Hemoglobin A1c > 12.0 % Lactic Acid Level 4.2 MMOL/L Calcium Level 9.6 MG/DL Phosphorus Level 5.4 MG/DL Magnesium Level 2.3 MG/DL Total Bilirubin 1.7 MG/DL Aspartate Amino Transf (AST/SGOT) 21 U/L Alanine Aminotransferase (ALT/SGPT) 12 U/L Alkaline Phosphatase 91 IU/L Total Protein 8.6 G/DL Albumin 4.6 G/DL Globulin 4.0 G/DL Albumin/Globulin Ratio 1.2 Lipase 15 U/L Chemistry Comments Procalcitonin 0.07 NG/ML Test 06/29/25 14:23 06/29/25 15:10 06/29/25 15:41 06/29/25 16:50 Urine Specimen Description Cln catch midstream Urine Color Yellow Urine Clarity Clear Urine pH 5.5 Urine Specific [place] 1.025 Urine Protein Negative mg/dl Urine Glucose (UA) 500 mg/dl Urine Ketones >=80 mg/dl Urine Occult Blood Negative Urine Nitrite Negative Urine Bilirubin Negative Urine Urobilinogen 0.2 E.U/dL Urine Leukocyte Esterase Negative Urine Culture Indicated Not ind Volume Urine Centrifuged 10 ml Urine Comment Urine Opiates Screen Negative Urine Methadone Screen Negative Urine Fentanyl Screen Negative Urine Barbiturates Screen Negative Urine Phencyclidine Screen Negative Urine Amphetamines Screen Negative Urine Benzodiazepines Screen Negative Urine Cocaine Screen Negative Urine Cannabinoids Screen Positive Drug Screen Comment Glucometer 489 mg/dl 371 mg/dl Lactic Acid Level 2.7 MMOL/L Test 06/29/25 17:58 06/29/25 19:11 06/29/25 19:33 06/29/25 20:10 Glucometer 283 mg/dl 230 mg/dl 182 mg/dl Sodium Level 141 MMOL/L Potassium Level 4.4 MMOL/L Chloride Level 110 MMOL/L Carbon Dioxide Level 14.5 MMOL/L Anion Gap 17 Blood Urea Nitrogen 18 MG/DL Creatinine 1.11 MG/DL Estimated GFR/1.73 m2 80 ML/MIN BUN/Creatinine Ratio 16.2 Glucose Level 259 MG/DL Lactic Acid Level 3.0 MMOL/L Calcium Level 8.2 MG/DL Phosphorus Level 3.0 MG/DL Magnesium Level 2.3 MG/DL Total Bilirubin 0.7 MG/DL Aspartate Amino Transf (AST/SGOT) 18 U/L Alanine Aminotransferase (ALT/SGPT) 11 U/L Alkaline Phosphatase 70 IU/L Total Protein 6.7 G/DL Albumin 3.3 G/DL Globulin 3.4 G/DL Albumin/Globulin Ratio 1.0 Chemistry Comments Test 06/29/25 21:09 06/29/25 22:12 06/29/25 23:12 06/29/25 23:36 Glucometer 165 mg/dl 169 mg/dl 165 mg/dl Sodium Level 142 MMOL/L Potassium Level 4.0 MMOL/L Chloride Level 112 MMOL/L Carbon Dioxide Level 21.2 MMOL/L Anion Gap 9 Blood Urea Nitrogen 14 MG/DL Creatinine 0.97 MG/DL Estimated GFR/1.73 m2 > 90 ML/MIN BUN/Creatinine Ratio 14.4 Glucose Level 149 MG/DL Calcium Level 7.7 MG/DL Phosphorus Level 1.6 MG/DL Magnesium Level 1.8 MG/DL Total Bilirubin 0.8 MG/DL Aspartate Amino Transf (AST/SGOT) 16 U/L Alanine Aminotransferase (ALT/SGPT) 8 U/L Alkaline Phosphatase 59 IU/L Total Protein 6.0 G/DL Albumin 3.0 G/DL Globulin 3.0 G/DL Albumin/Globulin Ratio 1.0 Chemistry Comments Test 06/30/25 00:11 06/30/25 01:11 06/30/25 02:20 06/30/25 03:14 Glucometer 158 mg/dl 110 mg/dl 66 mg/dl Sodium Level 142 MMOL/L Potassium Level 3.9 MMOL/L Chloride Level 112 MMOL/L Carbon Dioxide Level 21.9 MMOL/L Anion Gap 8 Blood Urea Nitrogen 14 MG/DL Creatinine 1.00 MG/DL Estimated GFR/1.73 m2 90 ML/MIN BUN/Creatinine Ratio 14.0 Glucose Level 78 MG/DL Calcium Level 7.8 MG/DL Magnesium Level 1.8 MG/DL Total Bilirubin 0.9 MG/DL Aspartate Amino Transf (AST/SGOT) 17 U/L Alanine Aminotransferase (ALT/SGPT) 11 U/L Alkaline Phosphatase 62 IU/L Total Protein 6.0 G/DL Albumin 3.1 G/DL Globulin 2.9 G/DL Albumin/Globulin Ratio 1.1 Chemistry Comments Test 06/30/25 03:42 06/30/25 04:15 06/30/25 05:10 06/30/25 06:10 Glucometer 170 mg/dl 149 mg/dl 174 mg/dl 178 mg/dl Test 06/30/25 06:59 06/30/25 07:04 06/30/25 07:58 06/30/25 09:19 Glucometer 191 mg/dl 156 mg/dl 198 mg/dl White Blood Count 12.0 X10'3 Red Blood Count 4.47 X10'6 Hemoglobin 12.7 g/dl Hematocrit 38.2 % Mean Corpuscular Volume 85.5 FL Mean Corpuscular Hemoglobin 28.4 PG Mean Corpuscular Hemoglobin Concent 33.2 g/dL Red Cell Distribution Width 12.3 % Platelet Count 188 X10'3 Mean Platelet Volume 9.4 FL Neutrophils (%) (Auto) 72.0 % Lymphocytes (%) (Auto) 18.4 % Monocytes (%) (Auto) 8.0 % Eosinophils (%) (Auto) 1.2 % Basophils (%) (Auto) 0.4 % Neutrophils # (Auto) 8.6 X10'3 Lymphocytes # (Auto) 2.2 X10'3 Monocytes # (Auto) 1.0 X10'3 Eosinophils # (Auto) 0.1 X10'3 Basophils # (Auto) 0.0 X10'3 CBC Comment Sodium Level 140 MMOL/L Potassium Level 3.5 MMOL/L Chloride Level 110 MMOL/L Carbon Dioxide Level 21.9 MMOL/L Anion Gap 8 Blood Urea Nitrogen 13 MG/DL Creatinine 0.93 MG/DL Estimated GFR/1.73 m2 > 90 ML/MIN BUN/Creatinine Ratio 14.0 Glucose Level 175 MG/DL Lactic Acid Level 1.0 MMOL/L Calcium Level 7.7 MG/DL Phosphorus Level 3.4 MG/DL Magnesium Level 1.9 MG/DL Total Bilirubin 0.9 MG/DL Aspartate Amino Transf (AST/SGOT) 15 U/L Alanine Aminotransferase (ALT/SGPT) 9 U/L Alkaline Phosphatase 59 IU/L Total Protein 5.6 G/DL Albumin 2.9 G/DL Globulin 2.7 G/DL Albumin/Globulin Ratio 1.1 Chemistry Comments Test 06/30/25 10:00 06/30/25 11:05 06/30/25 11:41 06/30/25 12:08 Glucometer 207 mg/dl 175 mg/dl 111 mg/dl Sodium Level 139 MMOL/L Potassium Level 4.0 MMOL/L Chloride Level 109 MMOL/L Carbon Dioxide Level 21.6 MMOL/L Anion Gap 8 Blood Urea Nitrogen 12 MG/DL Creatinine 0.88 MG/DL Estimated GFR/1.73 m2 > 90 ML/MIN BUN/Creatinine Ratio 13.6 Glucose Level 115 MG/DL Calcium Level 8.2 MG/DL Total Bilirubin 0.9 MG/DL Aspartate Amino Transf (AST/SGOT) 19 U/L Alanine Aminotransferase (ALT/SGPT) 14 U/L Alkaline Phosphatase 62 IU/L Total Protein 6.2 G/DL Albumin 3.1 G/DL Globulin 3.1 G/DL Albumin/Globulin Ratio 1.0 Chemistry Comments Imaging Chest X-Ray FINDINGS: Lines and Tubes: None Lungs: Clear Pleura: No effusion. No pneumothorax. Cardiomediastinal contours: Unremarkable Bones: Unremarkable IMPRESSION: No acute disease. *Problems/Diagnosis: (1) DKA (diabetic ketoacidoses) Status: Resolved Total Time Spent on D/C: Up to 30 Minutes Date of Service: Jun 30, 2025 Billing Provider: DAVID MAK MD, SANJAY, RES Jun 30, 2025 14:55
[2025-06-30] MEDS ORDERED: insulin glargine (Lantus) pen - multi-dose SQ SCH (21:00)
== END 2025-06-30 15:05 | disposition home or self-care (01) | DRG 638 ==
LOC: ER 12:41 → UNDOADMIN 15:25 → PCU 3S 15:25
PROVIDERS: ADMIT Family Medicine; ATTEND Family Medicine
DX: E10.10 Type 1 diabetes mellitus with ketoacidosis without coma (principal); N17.9 Acute kidney failure, unspecified; E86.0 Dehydration; E87.5 Hyperkalemia; Z79.4 Long term (current) use of insulin; Z88.0 Allergy status to penicillin
CPT/HCPCS: 36415; 71045; 80053; 80305; 81003; 82948; 83036; 83605; 83690; 83735; 84100; 84132; 84145; 85025; 87081; 93005; 99285; G0378; J1200; J1650; J1815; J2405; J2765; J3480; J3490; J7030; J7120